=== PATIENT | female | born 1940 | race Caucasian/White ===

== ENCOUNTER 2017-10-25 07:02 | Emergency (ER) | payer MEDICARE, BC ==
[~2017-10-25] VITALS: Ht 152.4 cm; Wt 47.9 kg
[2017-10-25 07:05] VITALS: BP 147/77
[2017-10-25] MEDS ORDERED: acetaminophen 325mg tablet PO ONE (07:55)
== END 2017-10-25 08:31 | disposition home or self-care (01) ==
LOC: ER 07:02
DX: R51 Headache (principal); R00.2 Palpitations; Z90.710 Acquired absence of both cervix and uterus; Z60.2 Problems related to living alone
CPT/HCPCS: 93005; 99283

== ENCOUNTER 2025-08-03 02:31 | Emergency (ER) | payer BC, MEDICARE, OTHER ==
[~2025-08-03] VITALS: Ht 160 cm; Wt 63.4 kg
--- NOTE | 2025-08-03 03:06 | ELECTROCARDIOGRAPH REPORT ---
[facility] Test Date: 2025-08-03 Test Time: 03:03:55 Pat Name: SAVAGE FREGOSO Department: [facility]- Patient ID: [id number] Room: Gender: F Supervisor Typesetting: STONE : 1940 Requested By: TERRI SEGURA Order Number: [id number] Reading MD: Dr. IRIS Koenig Measurements Intervals [place] Rate: 58 P: 62 SD: 195 QRS: -47 QRSD: 139 T: 18 QT: 429 QTc: 422 Interpretive Statements Slow sinus arrhythmia RBBB and LAFB Electronically Signed On 08-04-2025 13:08:[address] IRIS Koneig Please click the below link to view image of tracing.
--- NOTE | 2025-08-03 03:11 | Physician Documentation ---
History of Present Illness General Chief Complaint: See Chief Complaint Stated Complaint: WEAKNESS Time Seen by MD: 03:06 Mode of Arrival: EMS History of Present Illness Initial Comments This is a 85-year-old female who is an exceedingly poor historian. She was brought in by ambulance because she woke up and versus feeling lousy. At the time of my examination she does not know why she was transported. She tells me I woke up in bed. She denies headache, chest pain, difficulty breathing, nausea, vomiting, diarrhea, abdominal pain. Denies headache. Denies any vision or hearing changes. Denies feeling weak. She reports chronic left breast pain. Denies any concerns for tobacco, alcohol or illicit substances use Medication Reconciliation Allergies: Coded Allergies: No Known Allergies (Unverified , 11/16/15) Past Medical History Past Medical History: No Pertinent History Past Surgical History: appendectomy, hysterectomy Lives with: Alone Lives In: Home Occupation: retired Review of Systems ROS 10 point review of systems was performed and unless noted above in HPI is negative for acute process/complaint. Physical Exam Physical Exam Vital Signs: Temperature: 98.3, Source: Oral, Heart Rate: 62, Respiratory Rate: 16, BP: 162/75, Pulse Oximetry: 96, Weight: 63.400 Physical Exam GENERAL: Awake, alert, oriented, GCS 15, no apparent distress, non-toxic appearing, answers questions, follows commands appropriately. Examined in bed number seven immediately upon arrival HEENT: Atraumatic, normocephalic, pupils equal, extraocular muscles intact, sclerae anicteric, mucus membranes moist, oropharynx is clear, no stridor. NECK: supple, full active range of motion, trachea midline, no thyromegaly, no lymphadenopathy, no JVD. CARDIOVASCULAR: regular rate/rhythm, no murmurs/gallops/rubs, Pulses are 2+ in all extremities and symmetric. Capillary refill less than 2 seconds. PULMONARY: Nonlabored, good air movement ,no respiratory distress, speaking in full sentences, clear to auscultation bilaterally, no wheezing, no ronchi, no rales, no accessory muscle use. GASTROINTESTINAL: Soft, non-tender, non-distended, normal active bowel sounds, no organomegaly, no pulsatile masses, no CVA tenderness. NEUROLOGIC: Lucid with normal mental status. Normal facial symmetry. Moves all extremities symmetrically and with purpose. No truncal ataxia. Speech is fluid without evidence of dysarthria or aphasia, no focal deficits appreciated. MUSCULOSKELETAL: There is full range of motion of all extremities. There is no joint pain or joint swelling or joint erythema. There is no muscle pain or tenderness or swelling. EXTREMITIES: warm, well-perfused, no cyanosis, no clubbing, no edema, no acute deformities. Skin: warm, dry, no rashes or lesions, no jaundice, no petechiae orpurpura. No ecchymosis. PSYCHIATRIC: Normal affect, normal insight, normal concentration. Focused exam: [] Progress Results/Orders Results/Orders Vital Signs 08/03/25 08/03/25 08/03/25 08/03/25 02:33 02:39 04:39 06:07 Temp 98.3 Pulse 62 58 58 Resp 16 16 16 18 B/P (MAP) 162/75 163/85 (111) 160/76 (104) Pulse Ox 96 96 98 Laboratory Tests Test 08/03/25 03:05 08/03/25 03:11 08/03/25 07:01 08/03/25 08:10 Influenza Type A Antigen Negative Influenza Type B Antigen Negative SARS-CoV-2 Antigen (Rapid) Negative White Blood Count 5.7 Red Blood Count 3.57 L Hemoglobin 12.6 Hematocrit 36.9 Mean Corpuscular Volume 103.3 H Mean Corpuscular Hemoglobin 35.2 H Mean Corpuscular Hemoglobin Concent 34.0 Red Cell Distribution Width 13.0 Platelet Count 281 Mean Platelet Volume 7.1 L Neutrophils (%) (Auto) 56.1 Lymphocytes (%) (Auto) 28.7 Monocytes (%) (Auto) 10.7 Eosinophils (%) (Auto) 2.7 Basophils (%) (Auto) 1.8 H Neutrophils # (Auto) 3.2 Lymphocytes # (Auto) 1.6 Monocytes # (Auto) 0.6 Eosinophils # (Auto) 0.2 Basophils # (Auto) 0.1 CBC Comment Erythrocyte Sedimentation Rate 58 H Sodium Level 143 Potassium Level 3.7 Chloride Level 107 Carbon Dioxide Level 30.9 Anion Gap 5 L Blood Urea Nitrogen 17 Creatinine 1.07 H Estimated GFR/1.73 m2 49 BUN/Creatinine Ratio 15.9 Glucose Level 105 H Lactic Acid Level 0.8 Calcium Level 9.1 Magnesium Level 2.1 Total Bilirubin 0.5 Aspartate Amino Transf (AST/SGOT) 25 Alanine Aminotransferase (ALT/SGPT) 21 Alkaline Phosphatase 101 Total Creatine Kinase 39 Troponin I High Sensitivity 12 14 C-Reactive Protein 2.42 H Pro-B-Type Natriuretic Peptide 586 H Total Protein 7.4 Albumin 3.1 L Globulin 4.3 Albumin/Globulin Ratio 0.7 L Chemistry Comments Troponin I High Sens Percent Delta 16 Troponin I Hi Sens Absolute Change 2 Urine Specimen Description Cln catch midstream Urine Color Yellow Urine Clarity Clear Urine pH 6.5 Urine Specific Emerson 1.015 Urine Protein Negative Urine Glucose (UA) Negative Urine Ketones Negative Urine Occult Blood Small Urine Nitrite Negative Urine Bilirubin Negative Urine Urobilinogen 0.2 Urine Leukocyte Esterase Negative Urine RBC 0-2 Urine WBC None seen Urine Squamous Epithelial Cells Few Urine Bacteria None seen Urine Mucus Few Urine Culture Indicated Not ind Volume Urine Centrifuged 10 ml Urine Comment Microbiology Date/Time Source Procedure Growth Status 08/03/25 07:01 Blood Arm Left Blood Culture - Preliminary NEGATIVE (LESS THAN 24 HOURS) Resulted EKG/XRAY/CT/US/VASC/MRI EKG : Additional Comment EKG was obtained at my request and interpreted by myself shows sinus arrhythmia, rate of 58, normal [place] interval, wide QRS with a right bundle, no QT prolongation, left axis, no STEMI. Medical Decision Making Additional information obtaine: other (EMS) Findings Facility Status: ED Holds, RME process The plan was discussed with the patient, who demonstrates clear understanding of the plan and is in agreement with the plan unless otherwise noted in the chart. All questions have been answered, all concerns were addressed unless otherwise documented. I was available throughout their ED stay for frequent reassessment and questions. Differential Diagnoses (considered and possible or likely): [Differential for "feeling lousy" in the old person residing in the nursing facility is simply in warm us in includes but not limited to dehydration, electrolyte derangement, urinary tract infection, pneumonia, occult bacteremia, less likely ACS, CHF, unlikely PE] ??Differential Diagnoses (considered and unlikely, not requiring evaluation currently): [No evidence of lateralizing sinuses suspect a stroke] MDM Data Please see HPI for the following: Independent Historians and external Records Review. Historian: [Patient] Independent Historians: ?[EMS] Medication Management: [Reviewed medication list] Social History and determinants: [Reviewed] Please see the body of the note for the following: Any independent interpretations of ECG, imaging studies. All vitals signs/haemodynamics, ordered tests were independently reviewed and interpreted by myself. Nursing triage complaint and vitals reviewed, additional nursing notes were reviewed as available and I agree unless otherwise noted or documented in contradiction in the chart Vital Signs: Independently reviewed Labs: Independently interpreted Imaging: Independently interpreted Old Medical Records: Independently reviewed, see HPI for relevant summary and information Pulse Oximetry: [96%] interpreted as [normal on room air] by me Additionally notably showing: [] Tests considered but not ordered include: [] Social Determinants of Health Impact: Patient was evaluated in [facility] [place] to healthcare due to below par ratio of patient to medical providers. [] Comorbid Conditions Impacting Present Evaluation and Care/Treatment: [] Management Discussions with other Healthcare Providers: [] Treatment and Disposition Medication Management (Given or considered): []. See EMR for details Consideration for Hospitalization/Escalation/Deescalation of Care: Admission for observation has been considered, [however the patient is able to tolerate p.o., their symptoms are controlled, they are able to rely on oral medications, and their chief complaint/diagnosis can be managed on outpatient basis.] ?ED Course:?[] ?Shared decision making:?[] Code status:?FULL Please see the full Electronic Medical Record for full details of nursing documentation, medications list, other records of complete past medical history and conditions, vital signs, laboratory studies, and any radiologic study interpretations by radiologists. Portions of this note were completed using Alere dictation software and as a result there may exist minor errors in laine coelho. I have reviewed elements of past family and social history and agree as included in note. PERC CRITERIA ASSESSMENT: Age > 50: No HR > 100: No 02 < 95%: No H/o DVT/PE: No Recent trauma/surgery: No Hemoptysis: No Exogenous Estrogen: No Unilateral Leg swelling: No Pretest probability > 15%: No [Less than 2% risk of PE. No further work up is necessary] Laboratory and imaging studies are reassuring. There are no significant findings. I re-interviewed the patient at 10:00 a.m. and she has no specific complaints. We contacted her son who indicated that she does have baseline dementia and it is not unusual for her to say she feels lousy. I find no evidence of dehydration, electrolyte derangement, urinary tract infection, pneumonia, occult bacteremia or (less likely) ACS, CHF, PE. I am going to discharge her back to her memory care unit. Differential Diagnosis See the body of main note for differential diagnosis Departure Disposition: HOME / SELF CARE / HOMELESS Impression: Primary Impression: Dementia Additional Impression: Anxiety Condition: Stable Additional Instructions: It is important to see your doctor or primary care provider. Emergency care may be incomplete without proper follow-up. Symptoms sometimes change or new symptoms might arise after you leave the emergency department. It is important that you call your doctor if you become worse in any way, or return to the emergency department. You are strongly urged to follow-up with your physician to assure complete and thorough care. Please call your doctor's office today, and informed them that you were seen in the emergency department, and that you need to be seen immediately for close follow-up. If you do not have a primary care doctor we encourage you to proactively seek a local physician for close follow-up. Consider local clinics, [facility], or local [facility]. Prior to discharge we spoke at length concerning symptoms that would merit reevaluation, but please return to the emergency department for any symptoms that are concerning to you, and we will be happy to continue your evaluation and treatment. Please note you can always return to the emergency department if you are having difficulty coordinating close follow-up. If medications were prescribed, you should fill them at your local pharmacy immediately and take only as prescribed. Bring your new medications to your doctors follow-up visit to discuss any changes that would be necessary. Please check [facility] for any results you did not receive in the Emergency Department: often we are unable to get all your tests back before you leave, and these tests need to be reviewed by your PCP and yourself. You can also call Medical Records if you are unable to access the internet to see inSparqt. Return to the emergency department immediately for worsening chest pain, difficulty breathing, sweating, or other concerning emergent symptoms. Referrals: NO PRIMARY CARE PROVIDER (PCP) Signature Scribe Signature: No scribe Attestation: The note accurately reflects work and decisions made by me.Lew Segura DO 08/03/25 03:10 LEW SEGURA DO Aug 03, 2025 03:11 BLAZE COHN MD Aug 03, 2025 10:41
[2025-08-03 03:25] LABS: MEAN PLATELET VOLUME 7.1 FL (7.4-10.4); RED CELL DISTRIBUTION WIDTH 13.0 % (11.5-14.5)
[2025-08-03 03:32] LABS: INFLUENZA TYPE A ANTIGEN RAPID NEGATIVE (Negative); INFLUENZA TYPE B ANTIGEN RAPID NEGATIVE (Negative)
[2025-08-03 03:39] LABS: CREATININE 1.07 MG/DL (0.40-0.90); TOTAL CARBON DIOXIDE 30.9 MMOL/L (24-32); eCRCL 32 ML/MIN; eGFR 49 ML/MIN
[2025-08-03 03:45] LABS: PRO BRAIN NATRIURETIC PEPTIDE 586 PG/ML (0-450)
--- NOTE | 2025-08-03 04:01 | RADIOLOGY REPORT ---
CHEST RADIOGRAPH Indication: Generalized weakness Technique: Single frontal view of the chest was obtained COMPARISON: None FINDINGS: Lines and Tubes: None Lungs: Clear Pleura: No effusion. No pneumothorax. Cardiomediastinal contours: Unremarkable Bones: Unremarkable IMPRESSION: 1. No acute disease.
[2025-08-03 08:32] LABS: LEUKOCYTE ESTERASE ,URINE NEGATIVE (Neg); NITRITES, URINE NEGATIVE (Neg); OCCULT BLOOD,URINE SMALL (Neg)
[2025-08-03 08:36] LABS: UA COLLECTION TYPE CLN CATCH MIDSTREAM
[2025-08-03 08:37] LABS: MUCUS STRANDS FEW /LPF (Neg); SQUAMOUS EPITHELIAL CELL,UR FEW /LPF (FEW)
[2025-08-03 11:07] VITALS: BP 137/84; PULSE 79; RESP 16; TEMP 98.2; O2SAT 97
== END 2025-08-03 11:25 | disposition designated cancer center or children's hospital (05) ==
LOC: ER 02:32
DX: F03.94 Unspecified dementia, unspecified severity, with anxiety (principal); F41.9 Anxiety disorder, unspecified; R06.2 Wheezing; Z90.49 Acquired absence of other specified parts of digestive tract; Z90.710 Acquired absence of both cervix and uterus; Z60.2 Problems related to living alone; Z20.822 Contact with and (suspected) exposure to COVID-19
CPT/HCPCS: 36415; 71045; 80053; 81001; 82550; 83605; 83735; 83880; 84484; 85025; 85651; 86140; 87040; 87804; 87811; 93005; 99285